=== PATIENT | female | born 1990 | race Two or more races ===

== ENCOUNTER 2018-11-21 04:26 | Emergency (ER) | payer SELFPAY ==
[~2018-11-21] VITALS: Ht 152.4 cm; Wt 59.0 kg
--- NOTE | 2018-11-21 04:52 | NUR ---
Dr Durant into eval patient.
[2018-11-21] MEDS ORDERED: ONDANSETRON ODT 4 MG TAB.RAPDIS SL ONE (05:00)
[2018-11-21] MEDS ORDERED: HYDROCODONE/APAP 5-325MG TABLET PO ONE (05:00)
[2018-11-21] MEDS ORDERED: ONDANSETRON ODT 4 MG TAB.RAPDIS ONE (05:01)
[2018-11-21] MEDS ORDERED: HYDROCODONE/APAP 5-325MG TABLET ONE (05:02)
--- NOTE | 2018-11-21 05:06 | NUR ---
Patient discharged to home in stable conditon with [facility] taking patient home. Written and verbal after care instructions given. Patient verbalizes understanding of instructions. Walked out of ER with no distress noted.
[2018-11-21 05:08] VITALS: BP 138/88
== END 2018-11-21 05:09 | disposition home or self-care (01) ==
LOC: ER 04:38
DX: S00.03XA Contusion of scalp, initial encounter (principal); Z88.0 Allergy status to penicillin; W20.8XXA Other cause of strike by thrown, projected or falling object, initial encounter; Y93.89 Activity, other specified; Y92.89 Other specified places as the place of occurrence of the external cause; Y99.8 Other external cause status
CPT/HCPCS: A4663; Q0162